=== PATIENT | male | born 1955 | race Caucasian/White ===

== ENCOUNTER 2022-05-25 13:37 | Emergency (ER) | payer OTHER, MEDICARE ==
[~2022-05-25] VITALS: Ht 172.7 cm; Wt 111.1 kg
[2022-05-25 13:45] VITALS: BP 148/78
[2022-05-25] MEDS ORDERED: DICLOFENAC POTA25 M1 (15:16)
[2022-05-25] MEDS ORDERED: EZALLOR SPRINKL20 MG (15:16)
[2022-05-25] MEDS ORDERED: BUPROPION HYDR100 MG (15:17)
[2022-05-25 18:07] VITALS: BP 148/78
== END 2022-05-25 18:14 | disposition home or self-care (01) | DRG 552 ==
LOC: ED 13:37
DX: M54.2 Cervicalgia (principal); R22.1 Localized swelling, mass and lump, neck; W11.XXXA Fall on and from ladder, initial encounter

== ENCOUNTER 2024-05-06 08:10 | Emergency (ER) | payer BC ==
[~2024-05-06] VITALS: Ht 172.7 cm; Wt 118.0 kg
[2024-05-06] VITALS (8 sets, daily range): BP systolic 118–137; BP diastolic 63–83
[~2024-05-06 08:10] MED LIST: BUPROPION HYDR100 MG; DICLOFENAC POTA25 M1; EZALLOR SPRINKL20 MG
[2024-05-06] MEDS ORDERED: KETOROLAC TROMETHAMINE 30 MG/ML SDV IV ONE (08:30)
[2024-05-06] MEDS ORDERED: SODIUM CHLORIDE 0.9% 1,000 ML IV ONE (08:35)
[2024-05-06] MEDS ORDERED: cefTRIAXone SODIUM 2 GM in SODIUM CHLORIDE 0.9% 100 ML IV ONE (08:35)
[2024-05-06 09:07] LABS: BASO% 0.2 % (0-3); EOS% 0.4 % (0-8); HEMOGLOBIN 15.3 g/dl (14.0-18.0); IMMATURE GRANULOCYTES 0.4 % (0.0-5.0); LYMPH% 6.9 % (15-41); MEAN CELL VOLUME 95.1 fL CALC (80.0-100.0); MEAN CORPUSCULAR HGB CONC 32.6 g/dL CAL (32.0-36.0); MONO% 11.7 % (2-13); NEUT# 14.59 thou/uL (1.82-7.42); NEUT% 80.4 % (42-76); RED BLOOD COUNT 4.94 mill/uL (4.70-6.10); RED CELL DISTRI WIDTH 13.1 % (11.5-15.5)
[2024-05-06 10:24] LABS: ALBUMIN 3.9 g/dL (3.2-5.0); BILIRUBIN, TOTAL 0.8 mg/dL (0.2-1.3); POTASSIUM 3.8 mmol/l (3.5-5.1); TOTAL PROTEIN 7.5 g/dL (6.3-8.2)
[2024-05-06] MEDS ORDERED: AMOX/K CLAV875 M1 PO (11:15)
[2024-05-06] MEDS ORDERED: DEXAMETHASON6 MG PO (11:15)
== END 2024-05-06 11:28 | disposition home or self-care (01) | DRG 153 ==
LOC: ED 08:10
PROVIDERS: Family Medicine
DX: J02.9 Acute pharyngitis, unspecified (principal); R91.8 Other nonspecific abnormal finding of lung field; I10 Essential (primary) hypertension; Z20.822 Contact with and (suspected) exposure to COVID-19
CPT/HCPCS: J0696; J1100; Q9967